=== PATIENT | male | born 1980 | race Caucasian/White ===

== ENCOUNTER 2018-12-27 17:59 | Observation (INO) ==
--- NOTE | 2018-12-27 18:06 | Emergency Department Note ---
Disposition Clinical Impression: Atypical chest pain, Weakness Chest pain Qualifiers: Chest pain type: unspecified Qualified Code(s): R07.9 - Chest pain, unspecified Dyspnea Qualifiers: Dyspnea type: unspecified Qualified Code(s): R06.00 - Dyspnea, unspecified Disposition: Admitted As Inpatient Condition: Fair Time of Disposition: 22:46 Chest Pain HPI - General Stated Complaint: CP Time Seen by Provider: 12/27/18 18:06 Vital Signs Reviewed: Yes Nursing Notes Reviewed: Yes - History of Present Illness HPI Narrative: 38-year-old male significant past medical history ventricular tachycardia states that he is supposed to be on several anti-arrhythmic and antihypertensive medications which he has not taken in 2-3 years after losing insurance coverage. Patient states this afternoon about noon that he developed lightheadedness, dizziness, chest tightness and palpitations radiating to his scapular region 5 out of 10 on the pain scale as well as dyspnea. Patient states this feels similar to his previous runs of ventricular tachycardia except that he had lightheaded and dizziness first which is abnormal for his previous pre sentations. At this time patient has no other concerns or complaints. Pt complaint: chest pain Onset (ago): day(s) - Related Data Home Medications Medication Instructions Recorded Confirmed Diltiazem 12/27/18 12/27/18 Metoprolol BID 12/27/18 hydroCHLOROthiazide 12/27/18 12/27/18 Allergies Allergy/AdvReac Type Severity Reaction Status Date / Time No Known Allergies Allergy Verified 04/29/18 15:49 Review of Systems: *See History of Present Illness for more detail Constitutional: Denies: fever, chills Cardiovascular: Admits chest pain 5 out of 10 on the pain scale radiating to the left scapular region Respiratory: Admits: dyspnea, denies: cough, hemoptysis Gastrointestinal: Denies: abdominal pain, nausea, vomiting, diarrhea, constip ation, hematemesis, melena, hematochezia Genitourinary: Denies: hematuria Musculoskeletal: Denies: back pain, neck pain Neurological: Denies: headache, weakness, lightheadedness/dizziness, numbness, paresthesias, difficulty with ambulation. Endocrine: Denies: fatigue All systems ED: reviewed and negative except as stated. Review of Systems: As Per HPI Chest Pain PMH - Past Medical History Medical history: Reports: other Surgical history: Reports: non-contributory Psychiatric history: Reports: no psych history - Social History Smoking Status: Current every day smoker Alcohol use: Reports: rarely Drug use: Reports: none Physical Exam Constitutional: No acute distress, [id number], engaged to conversation, speech is fluid, answers questions appropriately Neuro: GCS 15, no overt focal neurological deficits Head: Atraumatic, normocephalic Eyes: Pupils equal, round and reactive to light, no scleral icterus, no conjunctival injection Neck: Trachea midline without deviation. Anterior neck is supple without swelling. *Chest: Symmetric chest wall rise *Heart: Cardiac rhythm and rate are regular with S1 and S2 , no S3 or S4 appreciated, no murmurs, gallops, rubs, or clicks. *Lungs: Lungs are clear to auscultation bilaterally, without accessory muscle use or prolonged expiratory phase. No wheezes, rhonchi or stridor appreciated. Abdomen: Abdomen is flat, soft to palpation, normal bowel sounds. No abdominal bruit auscultated. Non-distended, non-rigid, no organomegaly, no ascites appreciated. No pulsatile mass, no tenderness or guarding to palpation in all four quadrants, no rebound Extremities: Normal capillary refill without evidence of pedal edema, joint swelling or erythema. Pulses/motor intact in all 4 extremities. Psychiatric exam: Patient displays a normal affect and mood for the environment. No overt signs of hallucination. Integumentary: warm, dry, intact, normal color. No rash, cyanosis, diaphoresis, erythema, or pallor - General Limitations: no limitations General appearance: alert, in no apparent distress Course Vital Signs Temperature 99.1 F 12/27/18 18:03 Pulse Rate 74 12/27/18 18:03 Respiratory Rate 18 12/27/18 18:03 Blood Pressure 183/111 12/27/18 18:03 O2 Sat by Pulse Oximetry 97 12/27/18 18:03 Temperature 97.5 F L 12/27/18 22:10 Pulse Rate 74 12/27/18 22:10 Respiratory Rate 16 12/27/18 22:10 Blood Pressure 154/95 12/27/18 22:10 O2 Sat by Pulse Oximetry 98 12/27/18 22:10 Oxygen Delivery Oxygen Delivery Room Air Chest Pain - MDM Narrative Medical decision making narrative: Patient remains asymptomatic in the ED and hemodynamically stable. Given patient's history of ventricular fibrillation cardiology was consulted at the request of the hospitalist who states the patient should be admitted on t elemetry consult will be placed that we will follow. Patient verbalizes understanding and agreement with this plan. Patient is hemodynamically stable time of admission. - Lab Data Lab results reviewed: Yes I reviewed the patient's lab results. Result diagrams: 12/27/18 18:21 12/27/18 18:21 Lab Results 12/27/18 12/27/18 Range/Units 18:21 18:21 WBC 7.8 (4.3-11.1) K/mcL RBC 4.96 (4.19-5.50) M/mcL Hgb 15.9 (12.9-16.9) g/dL Hct 46.0 (37.5-50.1) % MCV 92.7 (83.0-100.0) fL MCH 32.1 (28.0-33.3) pg MCHC 34.6 (31.6-35.5) g/dL RDW 12.3 (11.5-14.5) % Plt Count 234 (140-400) K/mcL MPV 10.4 (9.4-12.4) fL Immature Gran % 0.4 (0-4) % Seg Neutrophils % 56.6 % Lymphocytes % 29.4 % Monocytes % 11.4 % Eosinophils % 1.7 % Basophils % 0.5 % Neutrophils # 4.4 (1.6-8.9) K/mcL Lymphocytes # 2.3 (0.6-4.6) K/mcL Monocytes # 0.9 (0.0-1.3) K/mcL Eosinophils # 0.1 (0.0-0.6) K/mcL Basophils # 0.0 (0.0-0.2) K/mcL Sodium 140 (136-145) mEq/L Potassium 3.9 (3.5-5.1) mEq/L Chloride 104 (98-107) mEq/L Carbon Dioxide 27 (23-29) mEq/L BUN 11 (6-20) mg/dL Creatinine 0.87 (0.70-1.30) mg/dL Est GFR ( Amer) > 60 (> 60) Est GFR (Non-Af Amer) > 60 (> 60) BUN/Creatinine Ratio 13 (6-26) Glucose 108 H (70-105) mg/dL Calculated Osmolality 290 (280-300) Calcium 9.3 (8.6-10.3) mg/dL Magnesium 1.9 (1.6-2.6) mg/dL Troponin I < 0.03 (< 0.04) ng/mL - Radiology Data Radiology results reviewed: Yes I reviewed the patient's radiology results. Chest X-Ray 12/27/18 18:07 IMPRESSION: Normal appearing chest. No acute abnormality or change from the prior study D/ / Jerson Hopkins MD / Jerson Hopkins MD Interpreting Provider: Jerson Hopkins MD Heart Score - Score History: Slightly Suspicious EKG: Normal Age: Less than 45 Risk Factors: No risk factors known Troponin: Less than normal limit HEART Score Total: 0
[2018-12-27] MEDS ORDERED: Aspirin 81 MG TAB.CHEW PO ONE (18:45)
[2018-12-27 19:00] LABS: Basophils % 0.5 %; Eosinophils # 0.1 K/mcL (0.0-0.6); Eosinophils % 1.7 %; Hemoglobin 15.9 g/dL (12.9-16.9); Immature Granulocytes % 0.4 % (0-4); Lymphocytes # 2.3 K/mcL (0.6-4.6); Lymphocytes % 29.4 %; Mean Corpuscular HGB Conc 34.6 g/dL (31.6-35.5); Mean Corpuscular Hemoglobin 32.1 pg (28.0-33.3); Mean Corpuscular Volume 92.7 fL (83.0-100.0); Mean Platelet Volume 10.4 fL (9.4-12.4); Monocytes # 0.9 K/mcL (0.0-1.3); Monocytes % 11.4 %; Neutrophils # 4.4 K/mcL (1.6-8.9); Platelet Count 234 K/mcL (140-400); Red Blood Count 4.96 M/mcL (4.19-5.50); Red Cell Distribution Width 12.3 % (11.5-14.5); Segmented Neutrophils % 56.6 %; White Blood Count 7.8 K/mcL (4.3-11.1)
[2018-12-27] MEDS: Nitroglycerin 0.4 MG TAB.SUBL SL SCH ×3 (19:15→19:42)
[2018-12-27 19:22] LABS: BUN/Creatinine Ratio 13 (6-26); Blood Urea Nitrogen 11 mg/dL (6-20); Calcium 9.3 mg/dL (8.6-10.3); Carbon Dioxide 27 mEq/L (23-29); Chloride 104 mEq/L (98-107); Glucose 108 mg/dL (70-105); Osmolality,Calculated 290 (280-300); Potassium 3.9 mEq/L (3.5-5.1); Sodium 140 mEq/L (136-145); Troponin I < 0.03 ng/mL (< 0.04); eGFR For African Americans > 60 (> 60); eGFR For Non-African Americans > 60 (> 60)
--- NOTE | 2018-12-27 19:41 | Emergency Department Note ---
Disposition Clinical Impression: Atypical chest pain, Weakness Chest pain Qualifiers: Chest pain type: unspecified Qualified Code(s): R07.9 - Chest pain, unspecified Dyspnea Qualifiers: Dyspnea type: unspecified Qualified Code(s): R06.00 - Dyspnea, unspecified Disposition: Admitted As Inpatient Condition: Fair Time of Disposition: 22:47 Chest Pain HPI - General Chief Complaint: ED Chest Pain Stated Complaint: CP Time Seen by Provider: 12/27/18 18:06 Source: patient Limitations: no limitations Vital Signs Reviewed: Yes Nursing Notes Reviewed: Yes - History of Present Illness Severity scale (1-10): 5 - Related Data Home Medications Medication Instructions Recorded Confirmed Diltiazem 12/27/18 12/27/18 Metoprolol BID 12/27/18 hydroCHLOROthiazide 12/27/18 12/27/18 Allergies Allergy/AdvReac Type Severity Reaction Status Date / Time No Known Allergies Allergy Verified 04/29/18 15:49 Chest Pain PMH - Past Medical History Medical history: Reports: hypertension, other Surgical history: Reports: non-contributory Psychiatric history: Reports: no psych history - Social History Smoking Status: Current every day smoker Alcohol use: Reports: heavy Drug use: Reports: none Physical Exam - General Limitations: no limitations General appearance: alert, in no apparent distress Course Vital Signs Temperature 99.1 F 12/27/18 18:03 Pulse Rate 74 12/27/18 18:03 Respiratory Rate 18 12/27/18 18:03 Blood Pressure 183/111 12/27/18 18:03 O2 Sat by Pulse Oximetry 97 12/27/18 18:03 Temperature 97.5 F L 12/27/18 22:10 Pulse Rate 74 12/27/18 22:10 Respiratory Rate 16 12/27/18 22:10 Blood Pressure 154/95 12/27/18 22:10 O2 Sat by Pulse Oximetry 98 12/27/18 22:10 Oxygen Delivery Oxygen Delivery Room Air Chest Pain - [facility] Narrative Medical decision making narrative: 1807 hrs.: Patient in EKG performed shows a sinus rhythm, rate is 70, QRS is 81, QTC is 433, no signs of acute ischemia or ectopy, compared this to an EKG that was done earlier this year which shows no changes except for rate. Chest X-Ray 12/27/18 18:07 IMPRESSION: Normal appearing chest. No acute abnormality or change from the prior study D/ / Jerson Hopkins MD / Jerson Hopkins MD Interpreting Provider: Jerson Hopkins MD 2100 hrs. no signs of V. tach here. Spoke with hospitalist illnesses talk with cardiology cardiology said no change in plans. Admit with them consult hospice admission. Patient's in agreement with plan. Impression is chest pain rule out arrhythmia with history of V. tach. - Lab Data Result diagrams: 12/27/18 18:21 12/27/18 18:21 Lab Results 12/27/18 12/27/18 Range/Units 18:21 18:21 WBC 7.8 (4.3-11.1) K/mcL RBC 4.96 (4.19-5.50) M/mcL Hgb 15.9 (12.9-16.9) g/dL Hct 46.0 (37.5-50.1) % MCV 92.7 (83.0-100.0) fL MCH 32.1 (28.0-33.3) pg MCHC 34.6 (31.6-35.5) g/dL RDW 12.3 (11.5-14.5) % Plt Count 234 (140-400) K/mcL MPV 10.4 (9.4-12.4) fL Immature Gran % 0.4 (0-4) % Seg Neutrophils % 56.6 % Lymphocytes % 29.4 % Monocytes % 11.4 % Eosinophils % 1.7 % Basophils % 0.5 % Neutrophils # 4.4 (1.6-8.9) K/mcL Lymphocytes # 2.3 (0.6-4.6) K/mcL Monocytes # 0.9 (0.0-1.3) K/mcL Eosinophils # 0.1 (0.0-0.6) K/mcL Basophils # 0.0 (0.0-0.2) K/mcL Sodium 140 (136-145) mEq/L Potassium 3.9 (3.5-5.1) mEq/L Chloride 104 (98-107) mEq/L Carbon Dioxide 27 (23-29) mEq/L BUN 11 (6-20) mg/dL Creatinine 0.87 (0.70-1.30) mg/dL Est GFR ( Amer) > 60 (> 60) Est GFR (Non-Af Amer) > 60 (> 60) BUN/Creatinine Ratio 13 (6-26) Glucose 108 H (70-105) mg/dL Calculated Osmolality 290 (280-300) Calcium 9.3 (8.6-10.3) mg/dL Magnesium 1.9 (1.6-2.6) mg/dL Troponin I < 0.03 (< 0.04) ng/mL Attestation Statement - Attestation Attestation: This documentation is done with the assistance of Dragon dictation. Despite efforts made to ensure accuracy, there may be inaccuracies in printed circuit designer or spelling and typographical errors. I examined this patient and my medical decision-making was reviewed with the Resident Physician. I agree with the documented findings, disposition and treatment plan as described except to the extent set forth below. Patient was seen and evaluated by Dr. ji and myself, I agree with his evaluation and management plan, I supervised the care the patient throughout her stay. Patient presents today with chest discomfort which she says feels similar to previous episodes where he had V. tach. No free tach on monitor here. He is off antiarrhythmics. Regular cardiac workup on him and then reassess. He is in agreement this plan. I reviewed the residents documentation and agree with the residents assessment and plan of care. I have personally had face to face time with the patient. (Brief History, Brief Exam, and MDM) I personally supervised and was present for the vann/critical portions of the following procedures completed by the resident: EKG was read and interpreted by the ER resident, under my supervision, I agree with her interpretation.
[2018-12-27] MEDS ORDERED: *HR* FentaNYL (PF) 100 MCG/2 ML VIAL IVP ONE (19:54)
[2018-12-27 20:59] LABS: Magnesium 1.9 mg/dL (1.6-2.6)
[2018-12-27] MEDS ORDERED: *HR* LORazepam 2 MG/ML VIAL IVP PRN ×3 (22:58)
[2018-12-27] MEDS ORDERED: traMADol 50 MG TABLET PO PRN (23:02)
[2018-12-27] MEDS ORDERED: Acetaminophen 325 MG TABLET PO PRN (23:02)
[2018-12-27] MEDS ORDERED: *HR* Promethazine 25 MG/ML VIAL IVP PRN (23:02)
[2018-12-27] MEDS ORDERED: Naloxone 0.4 MG/ML INJ IVP PRN (23:02)
[2018-12-27] MEDS ORDERED: Nitroglycerin 0.4 MG TAB.SUBL SL PRN (23:05)
[2018-12-27] MEDS ORDERED: 0.9 % Sodium Chloride 1,000 ML IVC SCH (23:15)
--- NOTE | 2018-12-27 23:33 | Internal Med History&Physical ---
Date of Encounter: 12/27/18 Time of Encounter: 22:15 Internal Medicine - H&P: HPI Chief complaint: CP Admitted From: Emergency Dept Plans for Post Hospital Care: Home History of present illness: Mr. Ware is a 38 year old male w/PMH of HTN and hx of ventricular tachycardia presents from the ED w/CC of CP and SOB that began today at noon while he was at rest watching TV. Pt. states he began having left chest pain that presented as a pinching sensation w/o radiation. Pt stood up to walk around when the sx began and experienced dizziness. On examination, patient states he drinks 12 beers daily and did cocaine at a [employer] last night. Associated sx: Diaphoresis, SOB, dizziness. 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 Alleviating factors: none. Pt. reports similar sx several months ago. Pt. previously took diltiazem for his arrhythmia as well as metoprolol and hydrochlorothiazide for his blood pressure but stopped taking several years ago due to losing his insurance. Pt. also reports smoking 1 PPD as well as "quite a bit of marijuana". No recent cardiac w/u on file. Pt. denies recent illness, fever, chills, nausea, vomiting, headache, changes in vision, unusual bleeding, abdominal pain, diarrhea, constipation, numbness, tingling, pre-syncope, or s yncope. Past Med Surg Social Fam HX - Past Medical History Source: patient, old records reviewed Medical history: hypertension, other Additional medical history: vtach Psychiatric history: no psych history - Past Surgical History Surgical History: orthopedic, other Additional surgical history: LEFT HAND - Social History Smoking Status: Current every day smoker Packs per day: 1 PPD Smokeless Tobacco Status: No Alcohol use: heavy Drug use: cocaine (Used cocaine last night at a [employer] - unsure of quantity), marijuana (Pt. 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) Recent Out of Country Travel Within the Last 8 Weeks: No Exposure or Possible Exposure to Illness During Travel: No - Family History Father Race: Family Member Ethnicity: Non- Living Status: Age at : 65 Cause of : [place] Hx Family Cardiac Disorders: Yes (CAD, [place]) Hx Family Respiratory Disorders: Yes (COPD) Mother Race: Family Member Ethnicity: Non- Living Status: Age at : 60 Cause of : Creast cancer Hx Family Cancer: Yes (Breast) Brother Race: Family Member Ethnicity: Non- Living Status: Still Living Hx Family Medical Disorders: No Sister Race: Family Member Ethnicity: Non- Living Status: Still Living Hx Family Medical Disorders: No Grandfather Race: Family Member Ethnicity: Non- Living Status: Cause of : CAD Hx Family Cardiac Disorders: Yes (CAD) Internal Medicine - H&P: Meds Diltiazem 12/27/18 [History] Metoprolol BID 12/27/18 [History] hydroCHLOROthiazide 12/27/18 [History] Allergy/AdvReac Type Severity Reaction Status Date / Time No Known Allergies Allergy Verified 04/29/18 15:49 All Systems PM: A 10-system review of systems was performed and is negative for pertinent findings except as documented above in the HPI. - Constitutional Constitutional: no chills, no fever(s), no night sweats - EENT Eyes: no change in vision, no discharge, no pain, no photophobia Ears: no ear discharge, no ear pain, no tinnitus Nose, mouth and throat: no dysphagia, no nasal discharge, no neck pain, no sore throat - Breasts Breasts: as per HPI - Cardiovascular Cardiovascular ROS IM: as per HPI, chest pain, diaphoresis, dyspnea, dyspnea on exertion, irregular heart rhythm, lightheadedness, palpitations, no syncope - Respiratory Respiratory: as per HPI, dyspnea, dyspnea on exertion, no cough, no wheezing, no excessive phlegm production - Gastrointestinal Gastrointestinal: no abdominal pain, no diarrhea, no hematemesis, no h ematochezia, no melena, no nausea, no vomiting - Genitourinary Genitourinary ROS male: as per HPI - Musculoskeletal Musculoskeletal ROS IM: no numbness, no tingling - Integumentary Integumentary IM: no rash, no unusual bruising - Neurological Neurological ROS: as per HPI, dizziness, no confusion, no convulsions, no focal weakness, no numbness, no tingling, no tremor(s) - Psychiatric Psychiatric: as per HPI - Endocrine Endocrine IM: as per HPI - Hematologic/Lymphatic Hematologic/Lymphatic: no easy bruising - Allergic/Immunologic Allergic/Immunologic: as per HPI - Constitutional Vitals: Temp Pulse Resp BP Pulse Ox 97.5 F L 74 16 154/95 98 12/27/18 22:10 12/27/18 22:10 12/27/18 22:10 12/27/18 22:10 12/27/18 22:10 General appearance: Present: cooperative, mild distress (CP), A&O X 3, pleasant, answers questions appropriately Exam: Patient examined at bedside. Reports ongoing mild CP in left chest. Denies current SOB, diaphoresis, nausea, vomiting. Patient denies any other sx or complaints at this time. VS: 97.5F temp, HR 74, RR 16, BP 154/95, SPO2 98% on room air. - Head Head exam: Present: atraumatic, normocephalic - Eye Eye exam: Present: PERRL, conjuntiva pink, sclera anicteric Pupils: Present: PERRL - ENT ENT exam: Present: normal exam - Neck Neck exam general surgery: Present: supple, trachea midline. Absent: lymphadenopathy - Respiratory Respiratory exam: Present: CTAB. Absent: accessory muscle use, rales, rhonchi, wheezes - Cardiovascular Cardiovascular exam: Present: RRR, +S1, +S2. Absent: diastolic murmur, gallop, rubs, systolic murmur - GI/Abdominal GI/Abdominal exam: Present: normal bowel sounds, soft, no peritoneal signs. Absent: distended, tenderness - Rectal Rectal exam: Present: deferred - Additional comments: exam deferred. - Extremities Exam Extremities exam: Present: warm, radial pulses palpable and symmetrical. Absent: calf tenderness, cyanotic, pedal edema - Back Exam Back exam: Present: normal inspection - Neurological Exam Neurological exam: Present: alert, CN II-XII intact, oriented X3, no focal deficits. Absent: pronater drift, facial droop, speech deficit - Psychiatric Psychiatric exam: Present: normal affect, normal mood - Skin Skin exam: Present: dry, intact Internal Med - H&P Results - Labs CBC & Chem 7: 12/28/18 00:52 12/28/18 00:52 Labs: Short CBC 12/27/18 Range/Units 18:21 WBC 7.8 (4.3-11.1) K/mcL Hgb 15.9 (12.9-16.9) g/dL Hct 46.0 (37.5-50.1) % Plt Count 234 (140-400) K/mcL Neutrophils # 4.4 (1.6-8.9) K/mcL BMP 12/27/18 18:21 Sodium 140 Potassium 3.9 Chloride 104 Carbon Dioxide 27 BUN 11 Creatinine 0.87 Glucose 108 H Calcium 9.3 Cardiac Enzymes 12/27/18 Range/Units 18:21 Troponin I < 0.03 (< 0.04) ng/mL - EKG Data EKG shows normal: sinus rhythm Rate: bradycardia - EKG Data Prior EKG available for review: yes EKG comments: 12/27/18 23:38 EKG dated 12/27/18 at 18:07:10 shows sinus rhythm with anteroseptal infarct, old. EKG dated 12/27/18 at 22:58:10 shows sinus bradycardia with nonspecific T-wave abnormality. - Impressions ITS Impressions Chest X-Ray 12/27/18 18:07 IMPRESSION: Normal appearing chest. No acute abnormality or change from the prior study D/ / Jerson Hopkins MD / Jerson Hopkins MD Interpreting Provider: Jerson Hopkins MD - Diagnostic Studies Chest x-ray Additional comments: Impressions Chest X-Ray 12/27/18 18:07 IMPRESSION: Normal appearing chest. No acute abnormality or change from the prior study D/ / Jerson Hopkins MD / Jerson Hopkins MD Interpreting Provider: Jerson Hopkins MD - Assessment and Plan (1) Chest pain Current Visit: Yes Status: Acute Assessment and plan: Acute CP that began today at noon while he was at rest watching TV. Pt. states he began having left chest pain that presented as a pinching sensation w/o radiation. Pt stood up to walk around when the sx began and experienced dizziness. On examination, patient states he drinks 12 beers daily and did cocaine at a libertarian last night. Associated sx: Diaphoresis, SOB, dizziness. 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 Alleviating factors: none. Pt. reports similar sx several months ago. Pt. previously took diltiazem for his arrhythmia as well as metoprolol and hydrochlorothiazide for his blood pressure but stopped taking several years ago due to losing his insurance. Pt. also reports smoking 1 PPD as well as "quite a bit of marijuana". No recent cardiac w/u on file. 324 mg ASA in ED. 80 mg Lipitor ONCE now. IVP 10 mg hydralazine's every 6 hours when necessary with parameters for HTN. Initial troponin <0.03. Trending. Echocardiogram ordered. Nuclear stress test ordered for a.m. and Bed Management notified of this order if troponins remain WNL. NO BETA BLOCKERS DUE TO COCAINE USE LAST NIGHT. Cardiology consult ordered in ED. Patient is high risk for cardiac event and further morbidity d/t possible cocaine induced ACS, hx of poorly controlled V. tach and HTN w/o medications for several years; current tobacco, alcohol, marijuana, and cocaine abuse; and extensive familial hx of CAD and [place]. Observation. Qualifiers: Chest pain type: other chest pain Qualified Code(s): R07.89 - Other chest pain; R07.8 - Other chest pain (2) Dyspnea Current Visit: Yes Status: Acute Assessment and plan: Acute SOB w/CP sx. Pt. denies home O2 use. Pt. is a 1 PPD smoker as well as a "frequent user of marijuana". Supplemental O2 with titration and SPO2 monitoring. Falls/safety precautions and up with assist. Qualifiers: Dyspnea type: shortness of breath Qualified Code(s): R06.02 - Shortness of breath; R06.00 - Dyspnea, unspecified; R06.01 - Orthopnea (3) Cocaine use Current Visit: Yes Status: Acute Assessment and plan: Pt. reports cocaine use at a libertarian last night. No urine tox screen obtained in ED, so we will obtain urine tox screen to assess for cocaine. NO BETA BLOCKERS d/t possible cocaine induced ACS. SW consult ordered to assess for rehabilita tion needs. (4) History of ventricular tachycardia Current Visit: Yes Status: Chronic Assessment and plan: Hx of chronic ventricular tachycardia. Pt. reports cocaine use w/last being last night. Patient reports he previously took diltiazem daily but stopped several years ago after losing his insurance. Social work consult ordered for assistance assessment. Continuous cardiac telemetry. EKG shows sinus bradycardia with nonspecific T-wave abnormality. (5) HTN (hypertension) Current Visit: Yes Status: Chronic Assessment and plan: Hx of chronic HTN. Pt. reports he has not taken HTN medications for several years d/t loss of insurance. SW consult ordered for assistance assessment. Qualifiers: Hypertension type: essential hypertension Qualified Code(s): I10 - Essential (primary) hypertension (6) Tobacco abuse Current Visit: Yes Status: Chronic Assessment and plan: Hx of chronic tobacco abuse. Pt. reports smoking 1 PPD but denies current need for nicotine patch. (7) Alcohol abuse Current Visit: Yes Status: Chronic Assessment and plan: Hx of chronic alcohol abuse. Pt. states that he is "probably an alcoholic" and drinks a 12-pack of beer daily. Last beers were last night at a libertarian when he did cocaine as well. CIWA scale. Blood alcohol level was not obtained in ED. Blood alcohol level will be ordered. (8) Marijuana abuse Current Visit: Yes Status: Chronic Assessment and plan: Hx of chronic marijuana use. Pt. educated on drug abuse effects. (9) DVT prophylaxis Current Visit: Yes Status: Acute Assessment and plan: Heparin 5,000 units SQ Q8HR for DVT prophylaxis. Monitor pt. for signs of bleeding. - Time Spent With Patient Total time spent is greater than 50% in coordination of care (as documented) at patient's floor/unit and/or counseling patient: Greater than 35 minutes
[2018-12-27 23:58] LABS: INR 1.1; Prothrombin Time 12.1 Seconds (9.4-12.1)
[2018-12-28 00:01] LABS: Amylase 41 Units/L (29-103); Chol/HDL Ratio 2.7 (0-4.9); Cholesterol 127 mg/dL (< 200); Ethanol < 10 mg/dL (Less than 10); HDL Cholesterol 47 mg/dL (40-59); LDL Cholesterol,Calculated 60 mg/dL (0-99); Triglycerides 100 mg/dL (< 150)
[2018-12-28 01:04] LABS: Hematocrit 44.2 % (37.5-50.1); Hemoglobin 15.1 g/dL (12.9-16.9); Mean Corpuscular HGB Conc 34.2 g/dL (31.6-35.5); Mean Corpuscular Hemoglobin 32.2 pg (28.0-33.3); Mean Corpuscular Volume 94.2 fL (83.0-100.0); Platelet Count 215 K/mcL (140-400); Red Blood Count 4.69 M/mcL (4.19-5.50); Red Cell Distribution Width 12.2 % (11.5-14.5); White Blood Count 7.7 K/mcL (4.3-11.1)
[2018-12-28 01:25] LABS: BUN/Creatinine Ratio 17 (6-26); Blood Urea Nitrogen 14 mg/dL (6-20); Calcium 9.1 mg/dL (8.6-10.3); Carbon Dioxide 30 mEq/L (23-29); Chloride 103 mEq/L (98-107); Chol/HDL Ratio 2.6 (0-4.9); Cholesterol 113 mg/dL (< 200); Glucose 158 mg/dL (70-105); HDL Cholesterol 44 mg/dL (40-59); LDL Cholesterol,Calculated 54 mg/dL (0-99); Osmolality,Calculated 290 (280-300); Potassium 4.2 mEq/L (3.5-5.1); Sodium 138 mEq/L (136-145); Triglycerides 75 mg/dL (< 150); eGFR For African Americans > 60 (> 60); eGFR For Non-African Americans > 60 (> 60)
[2018-12-28 04:17] LABS: Amphetamine Screen,Urine Negative ng/mL (Cutoff=1000); Barbiturate Screen,Urine Negative ng/mL (Cutoff=200); Benzodiazepines Screen,Urine Negative ng/mL (Cutoff=200); Cannabinoid Screen,Urine Positive ng/mL (Cutoff = 50); Cocaine Screen,Urine Positive ng/mL (Cutoff= 300); Opiate Screen,Urine Negative ng/mL (Cutoff=300); Phencyclidine Screen,Urine Negative ng/mL (Cutoff=25)
[2018-12-28] MEDS: hydrALAZINE 10 MG TABLET PO PRN ×2 (04:43→12:13)
[2018-12-28] MEDS: *HR* Heparin 5,000 UNIT/ML VIAL SQ SCH ×2 (04:44→14:34)
[2018-12-28] MEDS ORDERED: Regadenoson 0.4 MG/5 ML SYRINGE IVP ONE (07:15)
[2018-12-28] MEDS ORDERED: Aspirin Enteric Coated 81 MG Tablet PO SCH (09:00)
[2018-12-28] MEDS ORDERED: Thiamine (B-1) 100 MG TABLET PO SCH (09:00)
[2018-12-28] MEDS ORDERED: Folic Acid 1 MG TABLET PO SCH (09:00)
[2018-12-28] MEDS ORDERED: Vitamin B Complex/Vit C/Vit E 1 EACH TABLET PO SCH (09:00)
[2018-12-28] MEDS ORDERED: Diltiazem CD (24hr) 120 MG CAPSULE PO SCH (12:30)
--- NOTE | 2018-12-28 12:34 | Cardiology Consult Note ---
<Tori Davalos - Last Filed: 12/28/18 12:30> Date of Encounter: 12/28/18 Time of Encounter: 11:00 Assessment and Plan (1) Atypical chest pain Current Visit: Yes Status: Acute Per cardiology: -Admitted with atypical chest pain. -Troponins negative. -No ECG changes noted. -Denies current chest pain. -[facility] 2013 with 20% prox LAD and 20% mid RCA. -S/p stress test today negative for ischemia or infarct. -TTE with LVEF preserved, no wall motion abnormalities noted. -Consider non-cardiac cause of chest pain. -No futher inpatient cardiology recs regarding chest pain. 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 -Had previously been on cardizem and metoprolol, however has not taken for years. -Reports palpitations at home. -No events noted on telemetry. -Of note, recent cocaine use. -Will restart cardizem. No BB with cocaine use. -Recommend holter at discharge to evaluation palpitations, ordered. -Cardiology will sign off, will arrange outpatient follow up. Discussion w patient/family: The assessment and plan as outlined above was discussed with the patient who expressed understanding and agreement. All questions were answered. Thank you for involving us in the care of your patient. Please call with any questions. Discussed and reviewed with . History of Present Illness Consult date: 12/28/18 Requesting physician: Earle Colbert Consult reason: chest pain Chief complaint: chest pain History of present illness: Mr. Ware is a 38 year old male with a relevant past medical history of RV outflow tract VT, mild CAD, HTN, anxiety, GERD, who presented to [facility] with complaints of chest pain. Patient states he was sitting on the couch yesterday when he noticed chest pain. Denies radiation. Reports shortness of breath. Denies diaphoresis. Denies syncope or near syncope. Denies aggravating or alleviating factors. Does report intermittent palpitations at home, states he has them "all the time." Denies current chest pain. Patient does report he has not been on his medications for a few years. Of note, patient also reports recent cocaine use a few days ago. Past Med Surg Social Fam HX - Past Medical History Attestation: Yes The following information was validated with the patient. Source: patient, old records reviewed Medical history: hypertension, other Additional medical history: vtach Psychiatric history: no psych history - Past Surgical History Surgical History: orthopedic, other Additional surgical history: LEFT HAND - Social History Smoking Status: Current every day smoker Packs per day: 1 PPD Smokeless Tobacco Status: No Alcohol use: heavy Drug use: cocaine (Used cocaine last night at a constitution party - unsure of quantity), marijuana (Pt. reports he smokes "quite a bit of marijuana") - Family History Father Race: Family Member Ethnicity: Non- Living Status: Age at : 65 Cause of : CA Hx Family Cardiac Disorders: Yes (CAD, CA) Hx Family Respiratory Disorders: Yes (COPD) Mother Race: Family Member Ethnicity: Non- Living Status: Age at : 60 Cause of : Creast cancer Hx Family Cancer: Yes (Breast) Brother Race: Family Member Ethnicity: Non- Living Status: Still Living Hx Family Medical Disorders: No Sister Race: Family Member Ethnicity: Non- Living Status: Still Living Hx Family Medical Disorders: No Grandfather Race: Family Member Ethnicity: Non- Living Status: Cause of : CAD Hx Family Cardiac Disorders: Yes (CAD) Medications and Allergies Diltiazem 12/27/18 [History] Metoprolol BID 12/27/18 [History] hydroCHLOROthiazide 12/27/18 [History] Allergy/AdvReac Type Severity Reaction Status Date / Time No Known Allergies Allergy Verified 04/29/18 15:49 All Systems Review: The remainder of the systems were reviewed and are negative - Cardiovascular Cardiovascular: as per HPI, chest pain at rest, palpitations Physical Examination Vital Signs, Last 4 Hours Temp Pulse Resp BP Pulse Ox 12/28/18 12:00 98.3 F 54 14 164/110 99 General: Conversant, No Apparent Distress HEENT: Atraumatic, Normocephaly, Mucus Membranes Moist Neck: No JVD, Normal carotid pulses Cardiac: Reg Rate and Rhythm, Normal S1 and S2, No Murmur Lungs: Normal Breath Sounds, No Wheeze, Rales, Rhonchi Neuro: Alert and responsive, No focal deficits noted Abdomen: Soft, Non-Tender Skin: No rashes noted on visualized skin Musculoskeletal: No Chest Wall Tenderness Extremities: No Clubbing, No Cyanosis, No Edema, Normal Pulses Results 12/28/18 00:52 12/28/18 00:52 Lab Results Impressions Chest X-Ray 12/27/18 18:07 IMPRESSION: Normal appearing chest. No acute abnormality or change from the prior study D/ / Jerson Hopkins MD / Jerson Hopkins MD Interpreting Provider: Jerson Hopkins MD Echocardiogram 12/27/18 23:08 Impressions: LVEF 60%. Indeterminate diastolic function. Normal right ventricular structure and function. Mild mitral regurgitation. Mild tricuspid regurgitation. Mild pulmonic regurgitation. Borderline pulmonary hypertension. Left Ventricular Wall Motion: Rest Echo Findings All wall segments showed normal motion. Findings: Study Quality * Technically adequate exam. ECG Findings * Sinus bradycardia. Left Ventricle * LVEF 60%. * Indeterminate diastolic function. * Normal LV chamber size, wall thickness and function. Right Ventricle * Normal right ventricular structure and function. Left Atrium * Moderately dilated left atrium. Right Atrium * Normal right atrial size. Aortic Valve * No aortic regurgitation. * Trileaflet aortic valve. * No aortic stenosis. Mitral Valve * Normal mitral valve structure. * No mitral stenosis. * Mild mitral regurgitation. Tricuspid Valve * Normal tricuspid valve structure. * Mild tricuspid regurgitation. * Estimated RA pressure is 8 mmHg. * Estimated RVSP is 34 mmHg. * Borderline pulmonary hypertension. Pulmonic Valve * Pulmonic valve is not well visualized. * No pulmonic stenosis. * Mild pulmonic regurgitation. Pulmonary Artery * Pulmonary artery not well visualized. Aorta * Normally sized aortic root. Pericardium * There is no pericardial effusion present. Interatrial Septum * No evidence of PFO by color Doppler. IVC * The IVC is dilated. * > 50% respiratory change Active Medications Acetaminophen (Tylenol) 650 mg PO Q6HR PRN PRN Reason: Mild Pain/Fever Stop: 06/28/19 23:03 Aspirin (Aspirin Ec) 81 mg PO DAILY [facility] Stop: 06/29/19 09:01 Diltiazem HCl (Cardizem Cd) 120 mg PO DAILY [facility] Stop: 06/29/19 12:31 Folic Acid (Folic Acid) 1 mg PO DAILY [facility] Stop: 06/29/19 09:01 Heparin Sodium (Porcine) (Heparin) 5,000 unit SQ Q8HCO [facility] Stop: 06/29/19 06:01 Last Admin: 12/28/18 04:44 Dose: Not Given Documented by: Hydralazine HCl (Hydralazine) 10 mg PO Q6HR PRN PRN Reason: Blood Pressure - High Stop: 06/28/19 23:07 Last Admin: 12/28/18 12:13 Dose: 10 mg Documented by: Sodium Chloride (0.9 % Sodium Chloride) 1,000 mls @ 100 mls/hr IVC .Q10H [facility] Stop: 12/28/18 19:14 Last Admin: 12/28/18 00:05 Dose: 100 mls/hr Documented by: Lorazepam (Ativan) 1 mg IVP Q1H PRN PRN Reason: Alcohol Withdrawal Stop: 06/28/19 22:59 Lorazepam (Ativan) 2 mg IVP Q4HR PRN PRN Reason: CIWA Score of 10-21 Stop: 06/28/19 22:59 Lorazepam (Ativan) 4 mg IVP Q4HR PRN PRN Reason: CIWA Score of 22-45 Stop: 06/28/19 22:59 Naloxone HCl (Narcan) 0.4 mg IVP Q2MPRN PRN PRN Reason: SEE COMMENTS Stop: 06/28/19 23:03 Nitroglycerin (Nitroglycerin) 0.4 mg SL Q5MPRN PRN PRN Reason: Chest Pain Stop: 06/28/19 23:06 Promethazine HCl (Phenergan) 12.5 mg IVP Q6HR PRN PRN Reason: Nausea And Vomiting Stop: 06/28/19 23:03 Thiamine HCl (Vitamin B-1) 100 mg PO DAILY [facility] Stop: 06/29/19 09:01 Tramadol HCl (Ultram) 50 mg PO Q6HR PRN PRN Reason: Moderate Pain Stop: 06/28/19 23:03 Vitamin B Complex/Vit C/Vit E (Stresstab) 1 each PO DAILY [facility] Stop: 06/29/19 09:01 Laboratory Tests 12/27/18 12/28/18 12/28/18 18:21 00:52 00:52 Hgb 15.1 Creatinine 0.83 Troponin I < 0.03 12/28/18 00:52 Hgb Creatinine Troponin I < 0.03 - Imaging and Cardiology Chest Xray: report reviewed Stress Test: report reviewed Echo: report reviewed Cardiac cath: report reviewed - EKG Interpretation EKG results cardiology: personally reviewed (ECG with SR.), other (Telemetry reviewed with average HR previous 12 hours noted to be 53, SB. PVCs, PACs noted.) Consult Discharge Plan - Plan Referrals: NONE,PCP [Primary Care Provider] - <Alyssia Jeffery - Last Filed: 12/28/18 12:54> Date of Encounter: 12/28/18 - Attending Attestation I examined this patient and my medical decision-making was reviewed with the NETBACKUP ADMIN. I agree with the documented findings, disposition and treatment plan as described. 38-year-old male presenting with chest pain after using cocaine and marijuana. Primary team ordered stress testing which was negative for ischemia or infarct with normal gated EF. Suspect chest pain symptoms are related to cocaine use. In regards to the patient's palpitations, he has been without medicines for a few years but reports being symptomatic. Recommend restarting Cardizem. He will be discharged on 24-hour Holter. Recommend outpatient follow-up with ALLAN Bal who he seen in the past. Will sign off. Assessment and Plan Discussion w patient/family: The assessment and plan as outlined above was discussed with the patient and/or family members who expressed understanding and agreement. All questions were answered. Thank you for involving us in the care of your patient. Please call with any questions. History of Present Illness History of present illness: Mr. Ware is a 38 year old male All Systems Review: The remainder of the systems were reviewed and are negative Physical Examination Vital Signs, Last 4 Hours Temp Pulse Resp BP Pulse Ox 12/28/18 12:00 98.3 F 54 14 164/110 99 Results 12/28/18 00:52 12/28/18 00:52 Lab Results 12/27/18 12/27/18 12/27/18 18:21 18:21 18:21 WBC 7.8 Hgb 15.9 Hct 46.0 Plt Count 234 INR 1.1 Sodium 140 Potassium 3.9 Chloride 104 Carbon Dioxide 27 BUN 11 Creatinine 0.87 Glucose 108 H Calcium 9.3 Magnesium 1.9 Troponin I < 0.03 Amylase 41 07/01/0912/28/18 12/28/18 00:52 00:52 00:52 WBC 7.7 Hgb 15.1 Hct 44.2 Plt Count 215 INR Sodium 138 Potassium 4.2 Chloride 103 Carbon Dioxide 30 H BUN 14 Creatinine 0.83 Glucose 158 H Calcium 9.1 Magnesium Troponin I < 0.03 Amylase
--- NOTE | 2018-12-28 14:09 | Discharge Summary ---
Orders not resulted at time of discharge: Pending orders 12/27/18 18:07 EKG [ECG 12 lead ECG] [ECG] Stat 12/27/18 22:48 EKG [ECG 12 lead ECG] [ECG] Stat 12/28/18 07:00 Troponin I Routine 12/28/18 07:06 NM tabitha perf SPECT multi [NM] Routine 12/28/18 12:29 ECG 48 holter monitor setup [ECG] Routine 12/29/18 04:00 Basic Metabolic Panel AM 0400 Complete Blood Count w/o Diff [HEME] AM 0400 12/30/18 04:00 Basic Metabolic Panel AM 0400 Complete Blood Count w/o Diff [HEME] AM 0400 Date of Encounter: 12/28/18 Time of Encounter: 14:03 - Discharge Diagnosis (1) Chest pain Priority: Primary Status: Acute Qualifiers: Chest pain type: other chest pain Qualified Code(s): R07.89 - Other chest pain; R07.8 - Other chest pain (2) Dyspnea Priority: Secondary Status: Acute Qualifiers: Dyspnea type: shortness of breath Qualified Code(s): R06.02 - Shortness of breath; R06.00 - Dyspnea, unspecified; R06.01 - Orthopnea (3) Cocaine use Priority: Secondary Status: Acute (4) HTN (hypertension) Priority: Secondary Status: Chronic Qualifiers: Hypertension type: essential hypertension Qualified Code(s): I10 - Essential (primary) hypertension (5) History of ventricular tachycardia Priority: Secondary Status: Chronic (6) Tobacco abuse Priority: Secondary Status: Chronic (7) Alcohol abuse Priority: Secondary Status: Chronic (8) Marijuana abuse Priority: Secondary Status: Chronic Hospital course: Patient with history of untreated hypertension, ventricular arrhythmia, and alcohol/cocaine abuse presented with chest pain in the setting of recent cocaine use. Serial troponins, EKG, and echocardiogram all within normal limits. He was evaluated by cardiology. Stress test completed that was low risk. Chest pain may have been secondary to cocaine use Patient was discharged on HCTZ and diltiazem (diltiazem given history of ventricular arrhythmia and contraindication to beta shaun (cocaine use)). Will have follow-up with new PCP. Discharge discussed with: patient - Time Spent with Patient Total time spent providing and/or coordinating discharge services: 43 minutes - Discharge Medications Prescriptions: New Diltiazem CD (24hr) [Cardizem CD] 360 mg PO DAILY #30 cap.er.24h hydroCHLOROthiazide [Hydrochlorothiazide] 25 mg PO DAILY #30 tablet Home Medications: Diltiazem CD (24hr) [Cardizem CD] 360 mg PO DAILY #30 cap.er.24h 12/28/18 [Rx] hydroCHLOROthiazide [Hydrochlorothiazide] 25 mg PO DAILY #30 tablet 12/28/18 [Rx] Allergies/Adverse Reactions: Allergy/AdvReac Type Severity Reaction Status Date / Time No Known Allergies Allergy Verified 12/28/18 14:00 Date of admission: 12/27/18 21:00 Primary care physician: PCP NONE Consults: 12/27/18 21:01 Consult to Cardiology [CONS] Stat Comment: Consulting Provider: Cardiology Melina Reason for Consult: Hx of V-Tach, CP, SOB Time Notified: 21:01 Call Completed: Yes 12/27/18 22:58 Consult to Trench Pipe Layer [CONS] Routine Reason for SW Consult: Drug and alcohol rehabilitation. Pt. also needs set up with a Design Maker and possible assistance w/prescription medication costs - Constitutional Vitals: Temp Pulse Resp BP Pulse Ox 98.3 F 54 14 190/124 99 12/28/18 12:00 12/28/18 12:00 12/28/18 12:00 12/28/18 13:58 12/28/18 12:00 General appearance: Present: cooperative, mild distress (CP), A&O X 3, pleasant, answers questions appropriately Exam: General: Ill-appearing and in no acute distress HEENT: No erythema of posterior pharynx. No exudates. Lymphatics: No mandibular or cervical lymphadenopathy Cardiovascular: RRR. No murmurs. No chest wall tenderness. Lungs: Clear to auscelltation bilaterally. Regular chest rise. Abdomen: Non-tender. No rebound or gaurding. Nl bowel sounds. Extremities: No edema. 2+ pulses radial and pedal pulses Skin: No rahses, abrasions, or contusions. Nl cap refill. Psych: Nl attention. A&Ox3 Neuro: interventional pain physician II-XII intact. 5/5 strength. Sensation to light touch and pinprick intact. - Patient Status Disposition: Home, Self-Care Condition: Good Functional capacity at discharge: independent ambulation Overall status at discharge: patient is back to baseline - Discharge Instructions Follow Up With: NONE,PCP [Primary Care Provider] - Forms: ED Satisfaction Letter - Diet and Activity Activity: increase activity as tolerated Diet: regular diet
[2018-12-28] MEDS ORDERED: Diltiazem CD (24hr) 180 MG CAPSULE PO ONE (14:12)
[2018-12-28] MEDS ORDERED: hydroCHLOROthiazide 25 MG TABLET PO SCH (14:15)
[2018-12-28] MEDS: Diltiazem CD (24hr) 180 MG CAPSULE PO SCH ×2 (14:28→16:29)
[2018-12-28 17:27] VITALS: BP 176/92
--- NOTE | 2018-12-28 18:18 | Electrocardiograph Report ---
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
--- NOTE | 2018-12-29 06:10 | Electrocardiograph Report ---
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
== END 2018-12-28 18:32 | disposition home or self-care (01) ==
LOC: 3BNU 17:59 → EMEROOARM 17:59 → SUATTDRO 21:00 → 3BNU 22:14
PROVIDERS: ADMIT Internal Medicine; ATTEND Internal Medicine

== ENCOUNTER 2020-02-29 06:25 | Observation (INO) ==
[2020-02-29] MEDS ORDERED: Isovue-370 500 ML BOTTLE IVP ONE (07:09)
[2020-02-29 07:19] LABS: BUN/Creatinine Ratio 11 (6-26); Blood Urea Nitrogen 8 mg/dL (6-20); Calcium 10.2 mg/dL (8.6-10.3); Carbon Dioxide 22 mEq/L (23-29); Chloride 100 mEq/L (98-107); Glucose 118 mg/dL (70-105); Magnesium 1.7 mg/dL (1.6-2.6); Osmolality,Calculated 283 (280-300); Potassium 3.6 mEq/L (3.5-5.1); Sodium 137 mEq/L (136-145); Troponin I < 0.03 ng/mL (< 0.04); eGFR For African Americans > 60 (> 60); eGFR For Non-African Americans > 60 (> 60)
[2020-02-29 07:29] LABS: Basophils # 0.1 K/mcL (0.0-0.2); Basophils % 0.7 %; Eosinophils # 0.1 K/mcL (0.0-0.6); Eosinophils % 1.1 %; Hematocrit 50.9 % (37.5-50.1); Hemoglobin 18.3 g/dL (12.9-16.9); Immature Granulocytes % 0.3 % (0-4); Lymphocytes % 28.6 %; Mean Corpuscular Hemoglobin 31.9 pg (28.0-33.3); Mean Corpuscular Volume 88.8 fL (83.0-100.0); Mean Platelet Volume 10.1 fL (9.4-12.4); Monocytes # 1.2 K/mcL (0.0-1.3); Monocytes % 11.1 %; Neutrophils # 6.1 K/mcL (1.6-8.9); Platelet Count 290 K/mcL (140-400); Red Blood Count 5.73 M/mcL (4.19-5.50); Red Cell Distribution Width 11.9 % (11.5-14.5); Segmented Neutrophils % 58.2 %; White Blood Count 10.5 K/mcL (4.3-11.1)
[2020-02-29] MEDS ORDERED: 0.9 % Sodium Chloride 1,000 ML IVC ONE (07:58)
[2020-02-29] MEDS: Nitroglycerin 0.4 MG TAB.SUBL SL PRN ×3 (08:22→08:33)
[2020-02-29 08:56] LABS: Adenovirus Not Detected (Not Detect); Bordetella Pertussis Not Detected (Not Detect); Chlamydophila pneumoniae Not Detected (Not Detect); Coronavirus 229E Not Detected (Not Detect); Coronavirus HKU1 Not Detected (Not Detect); Coronavirus NL63 Not Detected (Not Detect); Coronavirus OC43 Not Detected (Not Detect); Human Metapneumovirus Not Detected (Not Detect); Human Rhinovirus/Enterovirus Not Detected (Not Detect); Influenza A Subtype 2009 H1 Not Detected (Not Detect); Influenza B Not Detected (Not Detect); Mycoplasma pneumoniae Not Detected (Not Detect); Parainfluenza Virus 1 Not Detected (Not Detect); Parainfluenza Virus 2 Not Detected (Not Detect); Parainfluenza Virus 3 Not Detected (Not Detect); Parainfluenza Virus 4 Not Detected (Not Detect); Respiratory Syncytial Virus Not Detected (Not Detect); SARS-CoV-2 Not Detected (Not Detect)
[2020-02-29] MEDS ORDERED: Naloxone 0.4 MG/ML INJ IVP PRN (10:10)
[2020-02-29] MEDS ORDERED: Morphine Sulfate 2 MG/ML SYRINGE IVP STA (11:17)
[2020-02-29] MEDS ORDERED: *HR* LORazepam 2 MG/ML VIAL IVP PRN (12:01)
[2020-02-29] MEDS ORDERED: Thiamine (B-1) 100 MG, Folic Acid 1 MG, MVI, adult with vitamin K 10 ML in 0.9 % Sodi... IVPB ONE (12:20)
[2020-02-29] MEDS ORDERED: Acetaminophen 325 MG TABLET PO PRN (12:21)
[2020-02-29] MEDS ORDERED: Albuterol 2.5 MG/3 ML NEBULIZER IH PRN (12:22)
[2020-02-29] MEDS ORDERED: Ipratropium/Albuterol Neb 3 ML IH PRN (12:22)
[2020-02-29] MEDS: *HR* OxyCODONE Immed Rel 5 MG TABLET PO PRN ×2 (12:40→18:44)
[2020-02-29] MEDS: *HR* LORazepam 2 MG/ML VIAL IVP PRN ×2 (14:08→19:46)
[2020-02-29] MEDS ORDERED: Morphine Sulfate 2 MG/ML SYRINGE IVP ONE (14:42)
[2020-02-29] MEDS ORDERED: GI Cocktail 40 ML EACH PO ONE (15:40)
[2020-02-29] MEDS ORDERED: Perflutren Lipid Microsphere 1.3 ML in 0.9 % Sodium Chloride 8.7 ML IVP PRN (15:58)
[2020-02-29 16:11] LABS: Bacteria,Urine Few per hpf (None-Few); Bilirubin,Urine Negative (Negative); Blood,Urine Negative (Negative); Budding Yeast,Urine Few per hpf (None Seen); Clarity,Urine Clear (Clear); Color,Urine Light-Orange (Yellow); Glucose,Urine (UA) Normal (Normal); Ketones,Urine Negative (Negative); Leukocyte Esterase,Urine Negative (Negative); Mucus,Urine Few per lpf (None-Few); Nitrite,Urine Negative (Negative); PH,Urine 8.5 pH Units (5.0-8.0); Protein,Urine 70 mg/dL (Neg-Trace); Specific Gravity,Urine > 1.030 (1.010-1.025); WBC,Urine 0-3 per hpf (0-3)
[2020-02-29 16:25] LABS: Amphetamine Screen,Urine Positive ng/mL (Cutoff=1000); Barbiturate Screen,Urine Negative ng/mL (Cutoff=200); Benzodiazepines Screen,Urine Negative ng/mL (Cutoff=200); Cannabinoid Screen,Urine Positive ng/mL (Cutoff = 50); Cocaine Screen,Urine Negative ng/mL (Cutoff= 300); Opiate Screen,Urine Positive ng/mL (Cutoff=300); Phencyclidine Screen,Urine Negative ng/mL (Cutoff=25)
[2020-02-29] MEDS: *HR* Heparin 5,000 UNIT/ML VIAL SQ SCH (17:21)
[2020-02-29 18:15] LABS: Troponin I < 0.03 ng/mL (< 0.04)
[2020-02-29 18:36] LABS: Alanine Aminotransferase 41 Units/L (7-52); Albumin 4.4 g/dL (3.5-5.7); Albumin/Globulin Ratio 1.5 (1.1-2.2); Alkaline Phosphatase 82 Units/L (34-104); Aspartate Amino Transferase 30 Units/L (13-39); Bilirubin,Direct 0.4 mg/dL (0.0-0.2); Bilirubin,Indirect 1.1 mg/dL (0.0-1.0); Bilirubin,Total 1.5 mg/dL (0.3-1.0); Total Protein 7.4 g/dL (6.4-8.9)
[2020-02-29] MEDS: Budesonide/Formoterol 160/4.5 1 PUFF INH IH SCH (20:07)
[2020-03-01] MEDS: *HR* LORazepam 2 MG/ML VIAL IVP PRN ×4 (03:53→20:01)
[2020-03-01 05:26] LABS: Basophils % 0.2 %; Eosinophils # 0.1 K/mcL (0.0-0.6); Eosinophils % 0.4 %; Hematocrit 44.6 % (37.5-50.1); Immature Granulocytes % 0.4 % (0-4); Lymphocytes # 1.7 K/mcL (0.6-4.6); Lymphocytes % 12.1 %; Mean Corpuscular Hemoglobin 31.9 pg (28.0-33.3); Mean Corpuscular Volume 91.2 fL (83.0-100.0); Mean Platelet Volume 10.3 fL (9.4-12.4); Monocytes # 1.5 K/mcL (0.0-1.3); Monocytes % 10.7 %; Neutrophils # 10.5 K/mcL (1.6-8.9); Platelet Count 232 K/mcL (140-400); Red Blood Count 4.89 M/mcL (4.19-5.50); Red Cell Distribution Width 12.2 % (11.5-14.5); Segmented Neutrophils % 76.2 %; White Blood Count 13.8 K/mcL (4.3-11.1)
[2020-03-01 05:27] LABS: Hemoglobin 15.6 g/dL (12.9-16.9)
[2020-03-01] MEDS ORDERED: Regadenoson 0.4 MG/5 ML SYRINGE IVP ONE (05:46)
[2020-03-01 05:53] LABS: BUN/Creatinine Ratio 21 (6-26); Blood Urea Nitrogen 15 mg/dL (6-20); Calcium 9.6 mg/dL (8.6-10.3); Carbon Dioxide 23 mEq/L (23-29); Chloride 101 mEq/L (98-107); Chol/HDL Ratio 2.2 (0-4.9); Cholesterol 95 mg/dL (< 200); Glucose 127 mg/dL (70-105); HDL Cholesterol 44 mg/dL (40-59); LDL Cholesterol,Calculated 27 mg/dL (< 100); Osmolality,Calculated 278 (280-300); Potassium 3.8 mEq/L (3.5-5.1); Sodium 133 mEq/L (136-145); Triglycerides 122 mg/dL (< 150); eGFR For African Americans > 60 (> 60); eGFR For Non-African Americans > 60 (> 60)
[2020-03-01] MEDS: Budesonide/Formoterol 160/4.5 1 PUFF INH IH SCH ×2 (07:41→19:49)
[2020-03-01] MEDS: *HR* Heparin 5,000 UNIT/ML VIAL SQ SCH ×2 (07:50→16:53)
[2020-03-01] MEDS: Vitamin B Complex/Vit C/Vit E 1 EACH TABLET PO SCH (07:57)
[2020-03-01] MEDS: amLODIPine 5 MG TABLET PO SCH (07:57)
[2020-03-01] MEDS: carvediloL 6.25 MG TABLET PO SCH ×2 (07:57→17:17)
[2020-03-01 11:47] LABS: Estimated Average Glucose 97 mg/dl
[2020-03-01] MEDS: *HR* Labetalol 20 MG/4 ML SYRINGE IVP PRN (23:59)
[2020-03-02] MEDS: *HR* Labetalol 20 MG/4 ML SYRINGE IVP PRN (04:13)
[2020-03-02 04:32] LABS: Basophils # 0.1 K/mcL (0.0-0.2); Basophils % 0.5 %; Eosinophils # 0.2 K/mcL (0.0-0.6); Eosinophils % 1.7 %; Hemoglobin 15.4 g/dL (12.9-16.9); Immature Granulocytes % 0.4 % (0-4); Lymphocytes # 3.1 K/mcL (0.6-4.6); Lymphocytes % 32.6 %; Mean Corpuscular HGB Conc 34.2 g/dL (31.6-35.5); Mean Corpuscular Volume 93.6 fL (83.0-100.0); Mean Platelet Volume 10.1 fL (9.4-12.4); Monocytes % 10.4 %; Neutrophils # 5.1 K/mcL (1.6-8.9); Platelet Count 192 K/mcL (140-400); Red Blood Count 4.81 M/mcL (4.19-5.50); Segmented Neutrophils % 54.4 %; White Blood Count 9.4 K/mcL (4.3-11.1)
[2020-03-02 04:51] LABS: BUN/Creatinine Ratio 21 (6-26); Blood Urea Nitrogen 16 mg/dL (6-20); Calcium 9.5 mg/dL (8.6-10.3); Carbon Dioxide 26 mEq/L (23-29); Chloride 102 mEq/L (98-107); Glucose 94 mg/dL (70-105); Osmolality,Calculated 281 (280-300); Potassium 3.7 mEq/L (3.5-5.1); Sodium 135 mEq/L (136-145); eGFR For African Americans > 60 (> 60); eGFR For Non-African Americans > 60 (> 60)
[2020-03-02] MEDS: *HR* Heparin 5,000 UNIT/ML VIAL SQ SCH (05:13)
[2020-03-02] MEDS ORDERED: Regadenoson 0.4 MG/5 ML SYRINGE IVP ONE (06:17)
[2020-03-02] MEDS ORDERED: hydroCHLOROthiazide 25 MG TABLET PO SCH (09:00)
[2020-03-02] MEDS: amLODIPine 5 MG TABLET PO SCH (09:07)
[2020-03-02] MEDS: carvediloL 6.25 MG TABLET PO SCH (09:07)
[2020-03-02] MEDS: Vitamin B Complex/Vit C/Vit E 1 EACH TABLET PO SCH (09:09)
[2020-03-02] MEDS: Budesonide/Formoterol 160/4.5 1 PUFF INH IH SCH (10:25)
[2020-03-02 11:32] VITALS: BP 135/88
== END 2020-03-02 14:55 | disposition home or self-care (01) ==
LOC: 2ANU 06:25 → EMEROOARM 06:25 → SUATTDRO 09:04 → 2ANU 09:31
PROVIDERS: ADMIT Internal Medicine; ATTEND Internal Medicine

== ENCOUNTER 2020-10-09 05:52 | Observation (INO) ==
[2020-10-09] MEDS ORDERED: Nitroglycerin 0.4 MG TAB.SUBL SL PRN ×2 (06:12→11:39)
[2020-10-09 06:26] LABS: Basophils % 0.6 %; Eosinophils # 0.2 K/mcL (0.0-0.6); Eosinophils % 2.2 %; Hematocrit 45.1 % (37.5-50.1); Hemoglobin 15.7 g/dL (12.9-16.9); Immature Granulocytes % 0.1 % (0-4); Lymphocytes # 2.6 K/mcL (0.6-4.6); Lymphocytes % 38.7 %; Mean Corpuscular HGB Conc 34.8 g/dL (31.6-35.5); Mean Corpuscular Hemoglobin 32.6 pg (28.0-33.3); Mean Corpuscular Volume 93.8 fL (83.0-100.0); Mean Platelet Volume 10.2 fL (9.4-12.4); Monocytes # 0.6 K/mcL (0.0-1.3); Neutrophils # 3.3 K/mcL (1.6-8.9); Platelet Count 248 K/mcL (140-400); Red Blood Count 4.81 M/mcL (4.19-5.50); Red Cell Distribution Width 11.9 % (11.5-14.5); Segmented Neutrophils % 49.4 %; White Blood Count 6.7 K/mcL (4.3-11.1)
[2020-10-09 06:47] LABS: BUN/Creatinine Ratio 20 (6-26); Blood Urea Nitrogen 12 mg/dL (6-20); Carbon Dioxide 23 mEq/L (23-29); Chloride 107 mEq/L (98-107); Glucose 156 mg/dL (70-105); Osmolality,Calculated 297 (280-300); Potassium 3.3 mEq/L (3.5-5.1); Sodium 142 mEq/L (136-145); Troponin I < 0.03 ng/mL (< 0.04); eGFR For African Americans > 60 (> 60); eGFR For Non-African Americans > 60 (> 60)
[2020-10-09 08:02] LABS: Creatine Kinase 66 Units/L (30-223)
[2020-10-09] MEDS ORDERED: Melatonin 3 MG TABLET PO PRN (09:55)
[2020-10-09] MEDS ORDERED: Naloxone 0.4 MG/ML INJ IVP PRN (09:55)
[2020-10-09] MEDS ORDERED: Ondansetron ODT 4 MG TAB.RAPDIS SL PRN (09:55)
[2020-10-09] MEDS ORDERED: MOM Conc 10 ML UD.LIQ PO PRN (09:55)
[2020-10-09] MEDS ORDERED: hydroCHLOROthiazide 25 MG TABLET PO SCH (11:45)
[2020-10-09] MEDS ORDERED: amLODIPine 5 MG TABLET PO SCH (11:45)
[2020-10-09 14:14] LABS: Amphetamine Screen,Urine Negative ng/mL (Cutoff=1000); Barbiturate Screen,Urine Negative ng/mL (Cutoff=200); Benzodiazepines Screen,Urine Negative ng/mL (Cutoff=200); Cannabinoid Screen,Urine Positive ng/mL (Cutoff = 50); Cocaine Screen,Urine Positive ng/mL (Cutoff= 300); Opiate Screen,Urine Negative ng/mL (Cutoff=300); Phencyclidine Screen,Urine Negative ng/mL (Cutoff=25)
[2020-10-09 15:44] VITALS: BP 132/98
[2020-10-09] MEDS ORDERED: Budesonide/Formoterol 160/4.5 1 PUFF INH IH SCH (22:00)
[2020-10-10] MEDS ORDERED: *HR* Enoxaparin 40 MG/0.4 ML SYRINGE SQ SCH (06:00)
== END 2020-10-09 16:52 | disposition home or self-care (01) ==
LOC: EMEROOARM 05:52 → 3BNU 05:52
PROVIDERS: ADMIT Internal Medicine; ATTEND Internal Medicine